=== PATIENT | male | born 1975 | race Caucasian/White ===

== ENCOUNTER 2019-02-28 11:57 | Emergency (ER) | payer OTHER ==
[~2019-02-28] VITALS: Ht 175.3 cm; Wt 88.9 kg
[~2019-02-28 11:57] MED LIST: ERYTHROMYCIN E3.5 G1 OPHTHALMIC; HYDROCODONE-APA1 TA1 PO
[2019-02-28] MEDS ORDERED: PROAIR HFA8.5 GM INH (12:07)
[2019-02-28] MEDS ORDERED: AMOXICILLIN 50500 MG PO (12:22)
[2019-02-28] MEDS ORDERED: NORCO 5-325 TA1 EAC1 PO (12:22)
[2019-02-28] MEDS ORDERED: IBUPROFEN 800800 M1 PO (12:22)
[2019-02-28 12:30] VITALS: BP 166/76
== END 2019-02-28 12:30 | disposition home or self-care (01) ==
LOC: M.ERS 11:57
DX: K08.89 Other specified disorders of teeth and supporting structures (principal); L53.9 Erythematous condition, unspecified; J45.909 Unspecified asthma, uncomplicated; F17.210 Nicotine dependence, cigarettes, uncomplicated

== ENCOUNTER → 2020-07-14 | Outpatient (CLI) | payer OTHER ==
[~2020-07-14] MED LIST changes: +AMOXICILLIN 50500 MG PO; +IBUPROFEN 800800 M1 PO; +NORCO 5-325 TA1 EAC1 PO; +PROAIR HFA8.5 GM INH
[2020-07-14 11:09] LABS: ABSOLUTE EOSINOPHILS 0.2 thou/uL (0.0-0.7); ABSOLUTE LYMPHOCYTES 1.8 thou/uL (0.8-5.3); ABSOLUTE MONOCYTES 0.6 thou/uL (0.0-1.2); ABSOLUTE NEUTROPHILS 5.5 thou/uL (1.6-8.1); BASOPHILS 0.6 %; EOSINOPHILS 2.4 %; HEMATOCRIT 43.8 % (42.0-52.0); HEMOGLOBIN 14.5 gm/dL (14.0-18.0); LYMPHOCYTES 21.6 %; MCH 29.8 pg (26.0-34.0); MCHC 33.2 g/dL (28.0-37.0); MCV 89.8 fL (80.0-100.0); MONOCYTES 7.6 %; NUCLEATED RBCS 0 /100WBC; PLATELET COUNT* 204 thou/uL (150-400); POLYS 67.8 %; RBC 4.88 mil/uL (4.50-6.00); RDW-CV 13.7 % (10.5-14.5); WBC 8.1 thou/uL (4.0-11.0)
[2020-07-14 11:27] LABS: ALBUMIN 4.1 g/dL (3.4-5.0); ALKALINE PHOSPHATASE 89 U/L (46-116); ANION GAP 8 mmol/L (7-16); BUN 11 mg/dL (7-18); CALCIUM 9.7 mg/dL (8.5-10.1); CHLORIDE 103 mmol/L (98-107); CHOLESTEROL 226 mg/dL (<200); CO2 31 mmol/L (21-32); GLUCOSE 98 mg/dL (70-99); HDL CHOLESTEROL 31 mg/dL (>40); LDL CHOLESTEROL 142 mg/dL (<100); POTASSIUM 4.4 mmol/L (3.5-5.1); SERUM ASSESSMENT Clear; SGOT 26 U/L (15-37); SGPT 65 U/L (30-65); SODIUM 142 mmol/L (136-145); TC:HDL 7.3 Ratio (Not establshd); TOTAL BILIRUBIN 0.4 mg/dL (<0.1-1.0); TRIGLYCERIDE 269 mg/dL (<150); TROPONIN-I LEVEL <0.06 ng/mL (<0.06); VLDL 54 mg/dL (<40)
[2020-07-14 12:09] LABS: ESR (SEDRATE) 20 mm/hr (0-15)
== END ==
LOC: M.LAB 10:42
PROVIDERS: ATTEND Nurse Practitioner Family
DX: U07.1 COVID-19 (principal); I10 Essential (primary) hypertension; R07.9 Chest pain, unspecified

== ENCOUNTER → 2020-09-19 | Outpatient (CLI) | payer OTHER ==
--- NOTE | 2020-09-19 16:11 | EXE ---
[place] [address] STRESS ECHOCARDIOGRAM Name: GEOVANNY BRENNAN Room: [facility]#: [id number] Admission: 09/19/20 Attend Phys: Berry Ashley, Discharge: Date of : 75 Date of Service: 09/19/20 1610 Report #: [id number] THIS REPORT FOR: cc: Rolanda Fong NP, Elizabeth NP Liston, Michael J. MD [facility] ~ APPROVED REPORT Study performed: 09/19/2020 14:57:59 Exam: Stress Echocardiogram Indication: Chest pain Patient Location: Out-Patient Stress Nurse: Enriqueta Harden RN Supervising Physician: Berry Ashley MD Ht: 5 ft 9 in HR: 67 bpm BP: 130/71 mmHg Medical History Cardiac Risk Factors: Age, , Hyperlipidemia, HTN, Tobacco History (Current/Recent), FHX of CAD Procedure The patient underwent an Exercise Stress Test using the Moisés Protocol. Blood pressure, heart rate, and EKG were monitored. An Echocardiogram was performed by phlebotomy services technician in four stages in quad fashion. At peak stress, four selected images were obtained and placed side by side with resting images for comparison. Stress Test Details Stress Test: Exercise stress testing was performed using a Moisés protocol. HR Resting HR: 67 bpm Max Heart Rate (APMHR): 175 bpm Max HR Achieved: 174 bpm Target HR (85% APMHR): 148 bpm % of APMHR: 99 Recovery HR: 89 bpm HR response to stress: Normal HR response to stress BP Resting BP: 130/71 mmHg Max BP: 242/66 mmHg Recovery BP: 145/75 [place] [address] STRESS ECHOCARDIOGRAM Name: GEOVANNY BRENNAN Room: [facility]#: [id number] Admission: 09/19/20 Attend Phys: Berry Ashley, Discharge: Date of : 75 Date of Service: 09/19/20 1610 Report #: [id number] BP response to stress: Normal blood pressure response to stress. ECG Resting ECG: Sinus Rhythm Stress ECG: Sinus Tachycardia ST Change: None Arrhythmia: None Recovery ECG: Sinus Rhythm Recovery ST Change: None Recovery Arrhythmia: None Clinical Reason for Termination: Completed protocol Exercise duration: 8 min 43 sec Highest Stage Achieved: Stage 3: 3.4 mph at 14% grade. Exercise capacity: 10.16 METs The patient had no significant symptoms with standard Moisés protocol exercise. Exercise was stopped due to attainment of target heart rate. Stress ECG Conclusion Baseline twelve-lead EKG shows sinus rhythm without significant ST segment or T wave abnormality. EKGs obtained during and post exercise show sinus rhythm and sinus tachycardia with no significant ST segment or T wave changes when compared to baseline. There were no stress-induced arrhythmias. Pre-Stress Echo The resting Echocardiogram showed normal left ventricular contractility with an estimated Ejection Fraction of about 60-65%. The resting echocardiogram demonstrated normal wall motion in all wall segments. Post-Stress Echo The stress Echocardiogram showed normal left ventricular contractility with an estimated Ejection Fraction of about >70%. Compared to rest, there were no stress-induced wall motion abnormalities. Conclusion Clinical Response: Non-ischemic Exercise Capacity: Average Stress ECG Response: Non-ischemic Stress Echo Images: [place] [address] STRESS ECHOCARDIOGRAM Name: BRENNANGEOVANNY Room: [facility]#: [id number] Admission: 09/19/20 Attend Phys: Berry Ashley, Discharge: Date of : 75 Date of Service: 09/19/201609 Report #: [id number] Other Information Study Quality: Good <ELECTRONICALLY SIGNED> By: Berry Ashley MD, FACC 09/19/201609 09 09 Beryr Ashley MD, FACC /INF
== END ==
LOC: M.CT 14:05
PROVIDERS: ATTEND Internal Medicine Cardiovascular Disease
DX: Z13.6 Encounter for screening for cardiovascular disorders (principal); R00.0 Tachycardia, unspecified; R07.9 Chest pain, unspecified

== ENCOUNTER 2021-02-28 21:19 | Emergency (ER) | payer OTHER ==
[~2021-02-28] VITALS: Ht 175.3 cm; Wt 98.9 kg
[2021-02-28] MEDS ORDERED: SYMBICORT160 MCG/4. INH (21:42)
[2021-02-28] MEDS ORDERED: ZYRTEC10 M5 PO (21:42)
[2021-02-28] MEDS ORDERED: SINGULAIR 10 MG10 M1 PO (21:42)
[2021-02-28] MEDS ORDERED: ASPIR-TRIN325 MG PO (21:42)
[2021-02-28 21:57] LABS: INFLUENZA A ANTIGEN Negative (Negative); INFLUENZA B ANTIGEN Negative (Negative)
[2021-02-28] MEDS ORDERED: PREDNISONE50 MG PO (22:55)
[2021-02-28 23:33] VITALS: BP 163/68
--- NOTE | 2021-03-01 16:42 | EKG ---
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
== END 2021-02-28 23:34 | disposition home or self-care (01) ==
LOC: M.ERS 21:19
PROVIDERS: Emergency Medicine
DX: J45.909 Unspecified asthma, uncomplicated (principal); Z20.822 Contact with and (suspected) exposure to COVID-19; F17.210 Nicotine dependence, cigarettes, uncomplicated; Z79.899 Other long term (current) drug therapy